=== PATIENT | female | born 1985 | race African-American/Black ===

== ENCOUNTER 2018-09-03 08:09 | Emergency (ER) | payer SELFPAY ==
[~2018-09-03] VITALS: Ht 177.8 cm; Wt 72.7 kg
[2018-09-03 08:12] VITALS: TEMP 97.5
[2018-09-03] MEDS ORDERED: DESYREL DIVIDO150 M1 PO (09:29)
[2018-09-03] MEDS ORDERED: SEROQUEL300 MG PO (09:30)
[2018-09-03] MEDS ORDERED: [UNRECOGNIZED DRUG - OTHER] PO (09:30)
[2018-09-03] MEDS ORDERED: ZOLOFT 25MG25 MG PO (09:33)
[2018-09-03] MEDS ORDERED: COGENTIN 1MG1 MG/TAB PO (09:33)
[2018-09-03] MEDS ORDERED: BENADRYL25 M2 PO (09:34)
[2018-09-03] MEDS ORDERED: ATARAX 10MG10 MG/TAB PO (09:34)
[2018-09-03] MEDS ORDERED: RISPERDAL 0.5M0.5 MG PO (09:35)
[2018-09-03 09:44] LABS: TRICYCLIC ANTIDEPRESS URINE NEGATIVE
[2018-09-03 10:14] LABS: HEMATOCRIT 37.9 % (37.0-47.0); HEMOGLOBIN 12.1 g/dl (12.5-16.0); MEAN CELL VOLUME 85 fl (80.0-100.0); MEAN CORPUSCULAR HEMOGLOBIN 27 pg (27.0-31.0); MEAN CORPUSCULAR HGB CONC 32 g/dl (33.0-37.0); MEAN PLATELET VOLUME 10.8 fl (7.4-10.4); PLATELET COUNT 210 K/mm3 (130-400); RED BLOOD COUNT 4.47 M/mm3 (4.10-5.30)
[2018-09-03 10:32] LABS: ALANINE AMINOTRANSFERASE 12 U/L (9-52); ALBUMIN 3.9 gm/dL (3.5-5.0); ALKALINE PHOSPHATASE 60 U/L (50-136); ANION GAP 8 mmol/L (7-16); AST,SGOT 21 U/L (15-37); BAND 2 % (0-10); BILIRUBIN,TOTAL 0.4 mg/dL (0.0-1.0); BLOOD UREA NITROGEN 7 mg/dL (7-17); CALCIUM 8.8 mg/dL (8.4-10.2); CARBON DIOXIDE 24 mmol/L (22-30); CHLORIDE 107 mmol/L (98-107); CREATININE, serum 0.59 (0.52-1.25); EOSINOPHIL 1 % (0-4); GLUCOSE 80 mg/dL (74-106); LYMPHOCYTE 26 % (20.0-51.0); NEUTROPHILS 67 % (42.0-75.2); POTASSIUM 4.1 mmol/L (3.4-5.0); SODIUM 140 mmol/L (137-145); TOTAL PROTEIN 7.2 gm/dL (6.4-8.2)
[2018-09-03 10:34] LABS: ALCOHOL(ethanol),MEDICAL < 10 mg/dL
[2018-09-03 10:53] LABS: TROPONIN-I < 0.012 ng/mL (0.000-0.035)
[2018-09-03 11:26] VITALS: BP 114/79; PULSE 56
== END 2018-09-03 11:26 | disposition home or self-care (01) ==
LOC: COL.ER 08:09
PROVIDERS: Nurse Practitioner
DX: F12.10 Cannabis abuse, uncomplicated (principal); F15.10 Other stimulant abuse, uncomplicated; R07.89 Other chest pain; F43.10 Post-traumatic stress disorder, unspecified; F32.9 Major depressive disorder, single episode, unspecified; F17.210 Nicotine dependence, cigarettes, uncomplicated; Z86.718 Personal history of other venous thrombosis and embolism; Z79.01 Long term (current) use of anticoagulants; Z88.8 Allergy status to other drugs, medicaments and biological substances

== ENCOUNTER 2018-10-04 11:26 | Emergency (ER) | payer SELFPAY ==
[~2018-10-04] VITALS: Ht 182.9 cm; Wt 81.8 kg
[~2018-10-04 11:26] MED LIST: ATARAX 10MG10 MG/TAB PO; BENADRYL25 M2 PO; COGENTIN 1MG1 MG/TAB PO; DESYREL DIVIDO150 M1 PO; RISPERDAL 0.5M0.5 MG PO; SEROQUEL300 MG PO; ZOLOFT 25MG25 MG PO; [UNRECOGNIZED DRUG - OTHER] PO
[2018-10-04 11:33] VITALS: BP 127/60; PULSE 91
[2018-10-04] MEDS ORDERED: ELIMITE TOP (12:04)
[2018-10-04 12:11] VITALS: TEMP 98
== END 2018-10-04 12:20 | disposition home or self-care (01) ==
LOC: COL.ER 11:26
DX: T14.8XXA Other injury of unspecified body region, initial encounter (principal); F17.210 Nicotine dependence, cigarettes, uncomplicated; F12.90 Cannabis use, unspecified, uncomplicated; F15.90 Other stimulant use, unspecified, uncomplicated; W57.XXXA Bitten or stung by nonvenomous insect and other nonvenomous arthropods, initial encounter

== ENCOUNTER 2018-11-01 22:34 | Emergency (ER) | payer SELFPAY ==
[~2018-11-01] VITALS: Ht 182.9 cm; Wt 71.8 kg
[~2018-11-01 22:34] MED LIST changes: +ELIMITE TOP
[2018-11-01 23:17] LABS: COLLECTION METHOD CLEAN CATCH
[2018-11-01 23:24] LABS: MUCOUS Present /lpf; PH 5 (5-8); URINE APPEARANCE Hazy; URINE BACTERIA None Seen /hpf; URINE BILIRUBIN Negative (NEGATIVE); URINE BLOOD Negative (NEGATIVE); URINE COLOR Amber; URINE GLUCOSE Negative (NEGATIVE); URINE KETONE Trace (NEGATIVE); URINE LEUKOCYTE ESTERASE Negative (NEGATIVE); URINE NITRATE Negative (NEGATIVE); URINE PROTEIN(semi-quant) 1+ (NEGATIVE); URINE RBC 0-2 /hpf
[2018-11-01 23:31] LABS: TRICYCLIC ANTIDEPRESS URINE NEGATIVE
[2018-11-01 23:45] LABS: BASO % 0.5 % (0.0-2.0); EOS # 0.2 (0.0-0.7); EOS % 2.6 % (0-4.0); GRAN # 3.3 (1.4-6.5); GRAN % 57.6 % (42.2-75.2); HEMATOCRIT 38.4 % (37.0-47.0); HEMOGLOBIN 12.4 g/dl (12.5-16.0); LYMPH # 1.8 (1.2-3.4); MEAN CELL VOLUME 83 fl (80.0-100.0); MEAN CORPUSCULAR HEMOGLOBIN 27 pg (27.0-31.0); MEAN CORPUSCULAR HGB CONC 32 g/dl (33.0-37.0); MEAN PLATELET VOLUME 11.3 fl (7.4-10.4); MONO # 0.5 (0.1-0.6); MONO % 8.1 % (1.7-9.3); PLATELET COUNT 200 K/mm3 (130-400); RED BLOOD COUNT 4.61 M/mm3 (4.10-5.30); REDCELL DISTRIBUTION WIDTH-CV 13.3 % (11.5-14.5)
[2018-11-02 00:01] LABS: ACETAMINOPHEN < 10 ug/mL (10-30); ALANINE AMINOTRANSFERASE 13 U/L (9-52); ALBUMIN 4.7 gm/dL (3.5-5.0); ALCOHOL(ethanol),MEDICAL < 10 mg/dL; ALKALINE PHOSPHATASE 47 U/L (50-136); ANION GAP 11 mmol/L (7-16); AST,SGOT 21 U/L (15-37); BILIRUBIN,TOTAL 0.5 mg/dL (0.0-1.0); BLOOD UREA NITROGEN 15 mg/dL (7-17); CALCIUM 9.9 mg/dL (8.4-10.2); CARBON DIOXIDE 24 mmol/L (22-30); CHLORIDE 104 mmol/L (98-107); CREATININE, serum 0.72 (0.52-1.25); GLUCOSE 81 mg/dL (74-106); POTASSIUM 3.8 mmol/L (3.4-5.0); SALICYLATE < 1.0 mg/dL; SODIUM 140 mmol/L (137-145); TOTAL PROTEIN 8.2 gm/dL (6.4-8.2)
[2018-11-02 00:30] LABS: TSH w REFLEX 0.945 uIU/mL (0.465-4.680)
[2018-11-03 21:15] VITALS: BP 128/75; PULSE 78; TEMP 98.6
== END 2018-11-03 17:45 ==
LOC: COL.ER 22:34
PROVIDERS: Nurse Practitioner
DX: F29 Unspecified psychosis not due to a substance or known physiological condition (principal); R45.851 Suicidal ideations; F20.9 Schizophrenia, unspecified; F17.210 Nicotine dependence, cigarettes, uncomplicated